=== PATIENT | male | born 1950 | race Caucasian/White ===

== ENCOUNTER 2016-11-14 07:04 | Emergency (ER) | payer BC ==
[2016-11-14 07:25] VITALS: BP 159/99
--- NOTE | 2016-11-14 07:31 | UC ---
Ear Complaint HPI - HPI Summary HPI Summary: 2 DAYS OF RIGHT EAR PAIN/JAW PAIN/TEETH ACHING. NO URI SX. NO FEVER. HEARING IS MAYBE A BIT MUTED. WENT TO DENTIST 3 WEEKS AGO FOR ROUTINE CHECK-UP AND HAD XRAYS AND EVERYTHING WAS OKAY. - History of Current Complaint Chief Complaint: UCEar Stated Complaint: EAR PAIN Time Seen by Provider: 11/14/16 07:22 Hx Obtained From: Patient Onset/Duration: Sudden Onset, Lasting Days, Still Present Severity Initially: Moderate Severity Currently: Moderate Pain Intensity: 5 Pain Scale Used: 0-10 Numeric Aggravating Factors: Nothing Alleviating Factors: Nothing Associated Signs/Symptoms: Positive: Hearing Loss. Negative: Discharge, Foreign Body Sensation, Trauma to Ear, Swelling @, URI Symptoms - Allergies/Home Medications Allergies/Adverse Reactions: Allergies Allergy/AdvReac Type Severity Reaction Status Date / Time No Known Allergies Allergy Verified 11/14/16 07:15 PMH/Surg Hx/FS Hx/Imm Hx Cardiovascular History: Cardiac Disease, Hypertension - Surgical History Surgical History: Yes Surgery Procedure, Year, and Place: angioplasty 2000 withone stent placed - Family History Known Family History: Positive: Hypertension - Social History Alcohol Use: Occasionally Substance Use Type: None Smoking Status (MU): Never Smoked Tobacco - Immunization History Most Recent Influenza Vaccination: 2016 Review of Systems Constitutional: Negative ENT: Dental Pain, Ear Ache Respiratory: Negative Cardiovascular: Negative Gastrointestinal: Negative All Other Systems Reviewed And Are Negative: Yes Physical Exam Triage Information Reviewed: Yes Appearance: Well-Appearing, No Pain Distress, Well-Nourished Vital Signs: Initial Vital Signs Temp 97.8 F 11/14/16 07:15 Pulse 71 11/14/16 07:15 Resp 16 11/14/16 07:15 BP 159/99 11/14/16 07:15 Pulse Ox 97 11/14/16 07:15 Vital Signs Reviewed: Yes Eyes: Positive: Conjunctiva Clear ENT: Positive: Hearing grossly normal, Pharynx normal, TMs normal, Other: - SLIGHTLY TENDER OVER PAROTID GLAND BUT NO OBVIOUS SWELLING. NO TMJ TENDERNESS.. Negative: TM bulging, TM dull, TM red Dental Exam: Normal - NO TENDERNESS TO PERCUSSION OVER TEETH OR GINGIVA. NO ABSCESS OR LESIONS. Neck: Positive: Supple, Nontender Respiratory: Positive: No respiratory distress, No accessory muscle use Cardiovascular: Positive: Pulses Normal Abdomen Description: Positive: Soft Musculoskeletal: Positive: No Edema Neurological: Positive: Alert Psychological: Positive: Age Appropriate Behavior Skin: Negative: rashes Ear Complaint Course/Dx - Differential Dx/Diagnosis Provider Diagnoses: SUSPECTED PAROTID DUCT OBSTRUCTION Discharge - Discharge Plan Condition: Stable Disposition: HOME Prescriptions: Amoxicillin/Clavulanate TAB* [Augmentin TAB 875*] 875 mg PO BID #20 tab Patient Education Materials: Parotid Duct Obstruction (ED), Sialoadenitis (ED) Referrals: Bassem Bernal MD [Primary Care Provider] - If Needed Additional Instructions: NO EAR INFECTION ON EXAM TODAY. NO CLEAR DENTAL INFECTION. SYMPTOMS NOT CONSISTENT WITH TMJ. POSSIBLE PAROTID GLAND OBSTRUCTION. SIALADENITIS/SIALOLITHIASIS (SALIVARY GLAND STONE) Salivary gland stones primarily are found in the three major salivary glands: parotid, submandibular, and sublingual. Eighty to 90 percent of stones arise from the submandibular glands. Dehydration, anticholinergic medications (such as antihistamines), and trauma are felt to predispose to the formation of stones. Sialolithiasis typically presents with pain and swelling, though painless swelling may occur. Conservative management is the initial mainstay of treatment in primary care; patients should be instructed to: - keep well hydrated - apply moist heat to the involved area - massage the gland, "milk" the duct - suck on tart hard candies to promote salivary flow (lemon drops). - ensure good oral hygiene Pain should be managed with NSAIDs or occasionally opioid analgesics. Anticholinergic medications should be discontinued when possible (eg. antihistamines, decongestants). Patients with symptoms persisting for more than a few days should be referred for specialist management. HYDRATE WARM COMPRESSES HARD CANDIES (LEMON DROPS, VITAMIN C LOZENGES) MASSAGE ENSURE GOOD ORAL HYGIENE AVOID ANTIHISTAMINES AND DECONGESTANTS WHILE YOU ARE HAVING SYMPTOMS IF SYMPTOMS ARE NOT IMPROVING OVER THE NEXT SEVERAL DAYS, FILL RX FOR ANTIBIOTIC. FOLLOW-UP WITH ENT IF NOT DOING WELL [facility] [place] [facility] [address] [facility] [phone]
== END 2016-11-14 07:55 | disposition home or self-care (01) ==
LOC: UCEAST 07:04
DX: H92.01 Otalgia, right ear (principal); R68.84 Jaw pain; K08.89 Other specified disorders of teeth and supporting structures; I10 Essential (primary) hypertension
CPT/HCPCS: 99212; G0463